=== PATIENT | female | born 1965 | race Caucasian/White ===

== ENCOUNTER → 2020-05-28 | Outpatient (CLI) | payer OTHER ==
--- NOTE | 2020-05-29 08:05 | RAD ---
Chest PA and lateral: Reason for examination: Short of breath. Abdominal pain. The heart size is normal. Mediastinum is unremarkable. Lung griffin show 1.5 cm nodule in the right lo wer lobe. No other infiltrates or pleural effusions are seen. No acute bony abnormality is seen. IMPRESSION: 1.5 cm nodule in the right lower lobe. Abdomen supine and upright: There is no gross organomegaly. Psoas muscles are symmetric. Bowel gas pattern is nonspecific and non obstructive. No abnormal calcifications are seen. There are severe degenerative changes at the left h ip. No acute bony abnormalities are seen. IMPRESSION: Nonspecific nonobstructive bowel gas pattern. 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 Electronically signed by: Christiane Cope MD (05/29/2020 8:01 AM) [email or web address]
== END ==
LOC: DXRAD 15:59
PROVIDERS: ATTEND Family Medicine
DX: R05 Cough (principal); R10.32 Left lower quadrant pain; M16.12 Unilateral primary osteoarthritis, left hip
CPT/HCPCS: 71046; 74019